=== PATIENT | female | born 1940 | race Caucasian/White ===

== ENCOUNTER 2022-02-23 08:51 | Emergency (ER) | payer MEDICARE, OTHER, SELFPAY ==
[2022-02-23 09:04] VITALS: BP 148/88; PULSE 72; RESP 18; TEMP 36.6; O2SAT 96; BMI 28.3
--- NOTE | 2022-02-23 09:27 | PC.NURSE ---
Dr Parekh with pt
--- NOTE | 2022-02-23 09:49 | ED_ITS ---
HPI - Neuro Symptoms/Deficit General Time Seen by Provider: 09:15 Date Seen: 02/23/22 Chief Complaint: Neuro Symptoms/Altered Deficit Stated Complaint: paralysis in legs when getting up Time Seen by Provider: 02/23/22 09:14 Source: patient Mode of arrival: ambulatory Limitations: no limitations History of Present Illness HPI Narrative: Mrs. Baires is an 81-year-old female previously healthy who presents to the emergency room with weakness. The patient has been seeing Dr. Sigala at the [facility] for this particular issue since the end of October. At that time patient was noting that her hands were falling asleep predominantly her thumb 2nd finger and 3rd finger but would in cage Ali involved both hands all fingers. She is due to see their [facility] in early March but had also submitted paperwork to [place] to be seen. She had doctored in the past primarily at the [facility]. She believes that what she is experiencing is related to her 1st booster shot for COVID. She states that in the past she has had anaphylaxis to injections and they observed her for 2 hours during her 1st shot. She notes no problems at that time but later experience fatigue proximally 4-5 months later. She received her 2nd shot without incident. Her 1st booster was July 24 and she notes 4-5 months later she began experiencing the symptoms. Patient notes that she has been using gabapentin in order to ?calm her nerves. She was told that if her symptoms worsened that she was to come to the emergency room. Today she notes that it was very challenging to get out of bed. She describes just the inability to do so. It does not appear to be compromising 1 side of her body more than the other. She also agrees that she has discomfort. She describes the discomfort and weakness predominantly in her thighs and upper arms. She has not suffered any trauma fall or injury. Have been no visual changes, tick bites, chest pain, night sweats or fevers. No loss of bowel or bladder control and she has no difficulty with swallowing, choking or tripping. She is not currently on a statin. Patient had MRI scheduled this morning to look into weakness. She did cancel that appointment. She also noticed that her hands seem somewhat swollen bilaterally. 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 As well as transient global amnesia 6 years ago seen in follow-up at [facility]. Onset (ago): month(s) History of same: No Quality: weak Exacerbating factors: time (Patient notes that she improves throughout the day. She states that the weakness gets better but throughout the day she will have sudden spasms of difficult comfort mainly in her right hand that cause numbness of her thumb finger) Context: gradual onset On Anticoagulants: No Associated symptoms: denies other symptoms and weakness Treatments Prior to Arrival: none Related Data Home Medications Medication Instructions Recorded Confirmed chlorthalidone 25 mg tablet mg 02/23/22 gabapentin 100 mg capsule mg 02/23/22 hydrochlorothiazide 12.5 mg capsule mg 02/23/22 potassium chloride 10 mEq meq PO 02/23/22 tablet,extended release(part/cryst) Allergies Allergy/AdvReac Type Severity Reaction Status Date / Time No Known Drug Allergies Allergy Verified 02/23/22 09:13 Review of Systems Status of ROS: Reports: 10 or more systems reviewed and unremarkable except as noted in History and below Narrative: Denies fever/chills and night sweats. Const: Reports: fatigue Eyes: Reports: other (No changes in vision.) ENMT: Reports: neck pain (Denies neck pain) and other (Denies difficulty swallowing or frequent choking) Cardio: Reports: other (Denies chest pain) Resp: Reports: other (Patient notes occasional shortness of breath related to allergies.) GI: Reports: other (No vomiting) : Reports: other (No loss of bowel or bladder control) Musculo: Reports: neck pain (Denies neck pain) and muscle weakness Neuro: Reports: numbness in extremities (Occasional numbness in her right thumb, index finger and 3rd finger.) and weakness in extremities (Describes mainly proximal weakness) Endo: Reports: fatigue PFSH PFSH Medical History Cancer Hypertension Social History Smoking Status: Never smoker Second hand tobacco smoke exposure: No Non-prescribed substance use: denies use service: No Exam Const: Vital Signs, click to edit/add: Vital Signs - 24 hr 02/23/22 09:04 02/23/22 11:27 Temperature 97.9 F 97.2 F L Pulse Rate [Right Pulse Oximeter] 72 72 Respiratory Rate 18 18 Blood Pressure [Ri ght Upper Arm] 148/88 H 158/88 H Pulse Oximetry 96 97 Documenting provider has reviewed patient's vital signs: yes Common normals: no apparent distress, oriented x3 (Detailed explanation of symptoms) and alert General appearance: comfortable (But mild distress with movement) Orientation/consciousness: Yes awake, Yes oriented to person, Yes oriented to place and Yes oriented to time HENMT: Common normals: normocephalic, head/scalp atraumatic and external ears normal Head and scalp: normocephalic and atraumatic Face and sinus: normal facial exam and face symmetric General ear: other (Difficulty hearing with mask in place) External ear: external ears normal Eye: Common normals: PERRL, EOMs intact bilaterally, conjunctivae normal and no scleral icterus General eye: normal appearance of both eyes and normal light reflex Visual stokes: other (Peripheral vision intact) Alignment: alignment normal Eyelid: eyelids normal Conjunctiva: conjunctiva(e) normal Sclera: sclerae normal Pupil: PERRL Direct Ophthalmoscopy: normal light reflex Neck & C-Spine: Common normals: full ROM, no lymphadenopathy, supple and no meningeal signs General: normal visual inspection and trachea midline Cervical spine: cervical ROM normal, normal cervical lordosis and other (Negative Spurling's sign) Lymph: Lymphatic: no lymphadenopathy noted Resp: Common normals: normal respiratory effort and clear to auscultation bilaterally Effort & inspection: able to speak in complete sentences Auscultation: clear to auscultation bilaterally Cardio: Common normals: regular rate and regular rhythm Rate: regular rate Rhythm: regular rhythm : Common normals: no CVA tenderness Bladder/kidney exam: no CVA tenderness Back & Pelvis: Common normals: no CVA tenderness and no thoracic nor lumbar tenderness Extremity: Common normals: normal to inspection General: normal exam except as noted Other: Strength of the upper extremities: Abduction present to approximately 80? but significant difficulty holding arms up against resistance. Elbow flexion noted pain in flexing strength 4/5. Elbow extension 3/5 with significant problems against resistance. 2/5 strength wrist extension bilaterally however flexion is intact at 4 to 5/5. Program Associate strength bilaterally decreased to 4/5. Hip flexion bilaterally 3 to 4/5. Knee extension and flexion intact at 5/5. Ankle and great toe flexion and extension 5/5. Neuro: Common normals: oriented x3 (Detailed explanation of symptoms) and moves all extremities Sensorium/orientation: awake, alert, oriented to person, oriented to place and oriented to time Meningeal signs: no meningeal signs Speech: speech normal Sensory exam: sensation present Monofilament exam performed: No Deep tendon reflexes: Rt Biceps (C5, C6): 2+, Lt Biceps (C5, C6): 2+, Rt Brachioradialis (C6): 1+, Lt Brachioradialis (C6): 1+, Rt Patellar (L4): 1+, Lt Patellar (L4): 1+, Rt Ankle (S1): 1+ and Lt Ankle (S1): 1+ Pupil exam: Normal pupillary reactivity/response: bilateral Psych: Common normals: mental status grossly normal, thought process normal, cooperative and speech normal Appearance: grossly normal Activity/motor behavior: appropriate eye contact Speech: normal speech Thought process: normal thought process Thought content: normal thought content Memory/cognition: memory grossly intact Course Course Hospital Course: At this time differential diagnosis is quite broad and does include but is not limited to spinal cord compression, neurological disorder, myositis, rheumatological disorder. We will obtain a CBC, comprehensive panel, sed rate, CRP, urinalysis, B12, iron study, vitamin-D, magnesium. In addition I do think she is in need of the cervical MRI as well as a head CT. Reevaluation(s) Reevaluation #1: Patient noted to be in improved as she has been up and walking. She was able to enjoy a some lunch. She has not had any worsening symptoms. Time: 12:30 Reevaluation #2: With patient we discussed her mildly elevated white count, the results of the head CT which were normal, as well as the MRI of the cervical spine which could explain upper extremity symptoms but had no increased cord signal to explain the proximal weakness of her lower extremities. I also spoke with her in regards to follow up with Neurology at [facility]. She should expect a phone call tomorrow from the neurology department. I have spoken with Radiology who will push her studies down to [facility]. Time: 15:30 Consultations Consultation #1: I had the pleasure of speaking with Dr. Arriola from [facility]. He is in agreement with our radiological studies and also suggest the addition of creatinine kinase. Time: 10:00 Consultation #2: I had the pleasure of speaking to Dr. Arriola a 2nd time at [facility]. With the reassuring CK and cervical MRI he suggests an EMG. He is pushing patient's name to their scheduling desk for an acute neurological appointment. I have provided patient's phone number to them so that they may call sometime tomorrow. Dr. Arriola advises patient to proceed directly to [facility] emergency room should she have continued worsening symptoms. Time: 15:30 Vital Signs Vital signs: Initial Vital Signs Temperature 97.9 F 02/23/22 09:04 Temperature Source Temporal Artery Scan 02/23/22 09:04 Pulse Rate 72 02/23/22 09:04 Pulse Rhythm 02/23/22 09:04 Respiratory Rate 18 02/23/22 09:04 Blood Pressure 148/88 H 02/23/22 09:04 Blood Pressure Mean 108 02/23/22 09:04 Blood Pressure Position Sitting 02/23/22 09:04 Pulse Oximetry 96 02/23/22 09:04 Oxygen Delivery Method 02/23/22 09:04 Vital Signs Temperature 97.9 F 02/23/22 09:04 Pulse Rate 72 02/23/22 09:04 Respiratory Rate 18 02/23/22 09:04 Blood Pressure 148/88 H 02/23/22 09:04 Pulse Oximetry 96 02/23/22 09:04 Temperature 97.2 F L 02/23/22 11:27 Pulse Rate 72 02/23/22 11:27 Respiratory Rate 18 02/23/22 11:27 Blood Pressure 158/88 H 02/23/22 11:27 Pulse Oximetry 97 02/23/22 11:27 MDM - Neuro Symptoms/Deficit MDM Narrative Medical decision making narrative: Discussed with patient vital signs which are normal. Also discussed elevated white count with no focus of infection. We will check a COVID although patient will not have to stay for that we will call her if that comes back positive. At this time feel she is safe to depart home. However, should her symptoms worsen even further she is instructed to go straight to [facility] ER if she is stable. If she is not stable she will come to the [facility] for arrange transfer. COVID is returned as negative. Medical Records Attestation: I reviewed the patient's medical records. Lab Data Attestation: I reviewed the patient's lab results. Lab results narrative: White count slightly elevated. Labs: Lab Results 02/23/22 02/23/22 02/23/22 Range/Units 00:10 00:10 00:10 WBC (4.50-11.00) K/uL RBC (4.00-5.20) m/uL Hgb (12.0-16.0) gm/dL Hct (33.0-51.0) % MCV (80-100) fL MCH (26-34) pg MCHC (32-36) gm/dL RDW Coeff of Dirk (11.5-15.5) % Plt Count (140-440) K/uL Neut % (Auto) (42.0-72.0) % Lymph % (Auto) (20-44) % [place] % (Auto) (0.0-11.0) % Eos % (Auto) (0.0-7.0) % Baso % (Auto) (0.0-3.0) % Neut # (Auto) (1.7-7.0) K/uL Lymph # (Auto) (0.90-2.90) K/uL [place] # (Auto) (0.00-0.90) K/UL Eos # (Auto) (0.00-0.50) K/uL Baso # (Auto) (0.00-0.30) K/uL Abs Immat Gran (auto) (0.00-0.30) K/uL ESR (2-20) mm/hr Sodium 140 (135-149) mmol/L Potassium 4.0 (3.6-5.1) mmol/L Chloride 103 (96-114) mmol/L Carbon Dioxide 30 (20-32) mmol/L BUN 23 (7-30) mg/dL Creatinine 1.1 (0.5-1.5) mg/dL Estimated Creat Clear 36.70 Glucose 114 (60-115) mg/dL Calcium 9.7 (8.4-10.6) mg/dL Magnesium 2.2 (1.5-2.6) mg/dL Iron 79 (37-170) ug/dL TIBC 324 (265-497) ug/dL % Saturation 24 (20-50) % Total Bilirubin 0.4 (0.1-1.5) mg/dL AST 23 (12-35) U/L ALT 16 (4-35) U/L Alkaline Phosphatase 48 (40-150) U/L Total Creatine Kinase 30 L (41-117) U/L C-Reactive Protein 0.7 (0.5-1.0) mg/dL Total Protein 6.7 (6.0-8.3) g/dL Albumin 4.1 (3.3-5.0) g/dL Vitamin B12 836 (243-894) pg/mL 1,25 Dihydroxy Vit D (30-80) ng/mL Urine Color (Yellow) Urine Appearance (Clear) Urine pH (5.0-8.5) Ur Specific [place] (1.000-1.030) Urine Protein (Negative) Urine Glucose (UA) (Negative) Urine Ketones (Negative) Urine Blood (Negative) Urine Nitrite (Negative) Urine Bilirubin (Negative) Urine Urobilinogen (0.2-1.0) Ur Leukocyte Esterase (Negative) Urine RBC (0-2) Urine WBC (0-5) Ur Squamous Epith Cells (None-Few) Urine Bacteria (None) SARS-CoV-2 (PCR) (Negative) Influenza Type A (PCR) (Negative) Influenza Type B (PCR) (Negative) 02/23/22 02/23/22 02/23/22 Range/Units 00:10 10:10 10:10 WBC 12.36 H (4.50-11.00) K/uL RBC 4.59 (4.00-5.20) m/uL Hgb 14.2 (12.0-16.0) gm/dL Hct 43.5 (33.0-51.0) % MCV 95 (80-100) fL MCH 31 (26-34) pg MCHC 33 (32-36) gm/dL RDW Coeff of Dirk 12.0 (11.5-15.5) % Plt Count 359 (140-440) K/uL Neut % (Auto) 71.6 (42.0-72.0) % Lymph % (Auto) 18.9 L (20-44) % [place] % (Auto) 6.6 (0.0-11.0) % Eos % (Auto) 2.1 (0.0-7.0) % Baso % (Auto) 0.5 (0.0-3.0) % Neut # (Auto) 8.80 H (1.7-7.0) K/uL Lymph # (Auto) 2.30 (0.90-2.90) K/uL [place] # (Auto) 0.80 (0.00-0.90) K/UL Eos # (Auto) 0.30 (0.00-0.50) K/uL Baso # (Auto) 0.10 (0.00-0.30) K/uL Abs Immat Gran (auto) 0.04 (0.00-0.30) K/uL ESR 7 (2-20) mm/hr Sodium (135-149) mmol/L Potassium (3.6-5.1) mmol/L Chloride (96-114) mmol/L Carbon Dioxide (20-32) mmol/L BUN (7-30) mg/dL Creatinine (0.5-1.5) mg/dL Estimated Creat Clear Glucose (60-115) mg/dL Calcium (8.4-10.6) mg/dL Magnesium (1.5-2.6) mg/dL Iron (37-170) ug/dL TIBC (265-497) ug/dL % Saturation (20-50) % Total Bilirubin (0.1-1.5) mg/dL AST (12-35) U/L ALT (4-35) U/L Alkaline Phosphatase (40-150) U/L Total Creatine Kinase (41-117) U/L C-Reactive Protein (0.5-1.0) mg/dL Total Protein (6.0-8.3) g/dL Albumin (3.3-5.0) g/dL Vitamin B12 (243-894) pg/mL 1,25 Dihydroxy Vit D 53 (30-80) ng/mL Urine Color (Yellow) Urine Appearance (Clear) Urine pH (5.0-8.5) Ur Specific [place] (1.000-1.030) Urine Protein (Negative) Urine Glucose (UA) (Negative) Urine Ketones (Negative) Urine Blood (Negative) Urine Nitrite (Negative) Urine Bilirubin (Negative) Urine Urobilinogen (0.2-1.0) Ur Leukocyte Esterase (Negative) Urine RBC (0-2) Urine WBC (0-5) Ur Squamous Epith Cells (None-Few) Urine Bacteria (None) SARS-CoV-2 (PCR) (Negative) Influenza Type A (PCR) (Negative) Influenza Type B (PCR) (Negative) 02/23/22 02/23/22 Range/Units 10:45 15:45 WBC (4.50-11.00) K/uL RBC (4.00-5.20) m/uL Hgb (12.0-16.0) gm/dL Hct (33.0-51.0) % MCV (80-100) fL MCH (26-34) pg MCHC (32-36) gm/dL RDW Coeff of Dirk (11.5-15.5) % Plt Count (140-440) K/uL Neut % (Auto) (42.0-72.0) % Lymph % (Auto) (20-44) % [place] % (Auto) (0.0-11.0) % Eos % (Auto) (0.0-7.0) % Baso % (Auto) (0.0-3.0) % Neut # (Auto) (1.7-7.0) K/uL Lymph # (Auto) (0.90-2.90) K/uL [place] # (Auto) (0.00-0.90) K/UL Eos # (Auto) (0.00-0.50) K/uL Baso # (Auto) (0.00-0.30) K/uL Abs Immat Gran (auto) (0.00-0.30) K/uL ESR (2-20) mm/hr Sodium (135-149) mmol/L Potassium (3.6-5.1) mmol/L Chloride (96-114) mmol/L Carbon Dioxide (20-32) mmol/L BUN (7-30) mg/dL Creatinine (0.5-1.5) mg/dL Estimated Creat Clear Glucose (60-115) mg/dL Calcium (8.4-10.6) mg/dL Magnesium (1.5-2.6) mg/dL Iron (37-170) ug/dL TIBC (265-497) ug/dL % Saturation (20-50) % Total Bilirubin (0.1-1.5) mg/dL AST (12-35) U/L ALT (4-35) U/L Alkaline Phosphatase (40-150) U/L Total Creatine Kinase (41-117) U/L C-Reactive Protein (0.5-1.0) mg/dL Total Protein (6.0-8.3) g/dL Albumin (3.3-5.0) g/dL Vitamin B12 (243-894) pg/mL 1,25 Dihydroxy Vit D (30-80) ng/mL Urine Color Yellow (Yellow) Urine Appearance Clear (Clear) Urine pH 7.0 (5.0-8.5) Ur Specific [place] 1.020 (1.000-1.030) Urine Protein Negative (Negative) Urine Glucose (UA) Negative (Negative) Urine Ketones Negative (Negative) Urine Blood Negative (Negative) Urine Nitrite Negative (Negative) Urine Bilirubin Negative (Negative) Urine Urobilinogen 0.2 (0.2-1.0) Ur Leukocyte Esterase 2+ A (Negative) Urine RBC 0-2 (0-2) Urine WBC 2-5 (0-5) Ur Squamous Epith Cells None (None-Few) Urine Bacteria None (None) SARS-CoV-2 (PCR) Negative SARS-CoV-2 (Negative) Influenza Type A (PCR) NEGATIVE (Negative) Influenza Type B (PCR) NEGATIVE (Negative) Discharge Plan Discharge Clinical Impression: Weakness Patient Disposition: Home, Self-Care Condition: Improved Additional Instructions: We will call you if the COVID test comes back positive. Await phone call from [facility] Neurology Department. They should call you tomorrow. Seek medical attention at [facility] emergency room for worsening symptoms. Return to the [facility] as needed. Activity Level: No Restrictions Discharge Diet: Regular Prescriptions: No Action chlorthalidone 25 mg tablet 0RF Label Comments: TAKE 1/2 TABLET (12.5MG) BY MOUTH ONCE DAILY hydrochlorothiazide 12.5 mg capsule 0RF gabapentin 100 mg capsule 0RF potassium chloride 10 mEq tablet,ER particles/crystals PO 0RF Label Comments: TAKE 2 TABLETS BY MOUTH ONCE DAILY WITH A MEAL. Follow Up/Referrals: Carlos Sigala MD [Primary Care Provider] - Stand Alone Forms: [facility] Info Instructions
--- NOTE | 2022-02-23 09:53 | PC.NURSE ---
Dr Parekh speaking with neuro
[2022-02-23 10:31] LABS: Basophils Percent Auto 0.5 % (0.0-3.0); Eosinophils Percent Auto 2.1 % (0.0-7.0); Hematocrit 43.5 % (33.0-51.0); Hemoglobin* 14.2 gm/dL (12.0-16.0); Immature Granulocytes Abs Auto 0.04 K/uL (0.00-0.30); Lymphocytes Percent Auto 18.9 % (20-44); Mean Corpuscular HGB Conc 33 gm/dL (32-36); Mean Corpuscular Hemoglobin 31 pg (26-34); Mean Corpuscular Volume 95 fL (80-100); Monocytes Percent Auto 6.6 % (0.0-11.0); Neutrophils Percent Auto 71.6 % (42.0-72.0); Platelet Count* 359 K/uL (140-440); Red Blood Count 4.59 m/uL (4.00-5.20); White Blood Count* 12.36 K/uL (4.50-11.00)
--- NOTE | 2022-02-23 10:34 | MR_ITS ---
Final Report Patient: HALINA SANTOS Facility:?[facility] Patient ID:?[id number] Site Patient ID:?[id number]. Site :?[id number] Study:?MRI Spine Cervical W/O-02/23/2022 12:06:32 PM Ordering Physician:?CLINT SEVERINO Final Report: Indication: Proximal muscle weakness. Technique: MRI of the cervical spine was performed without the use of intravenous contrast. Comparison: None relevant available. Findings: The cervical vertebral body heights are maintained without fracture. No marrow infiltrative process. Mild multilevel disc height loss and desiccation. No significant spondylolisthesis. No abnormal cord signal. Mild degenerative pannus formation at the C1-2 articulation. C2-3: No spinal canal or neural foraminal narrowing. C3-4: No spinal canal narrowing. [id number] bilateral neural foraminal narrowing secondary to uncovertebral joint and facet hypertrophy. C4-5: Small disc osteophyte complex with minimal spinal canal narrowing. Moderate right and [id number] left neural foraminal narrowing secondary to uncovertebral and facet hypertrophy. C5-6: No spinal canal narrowing. Moderately severe right and moderate left neural foraminal narrowing secondary to uncovertebral and facet hypertrophy. Potential impingement of the right C6 nerve. C6-7: Minimal disc bulge with minimal spinal canal narrowing. Moderately severe bilateral neural foraminal narrowing secondary to uncovertebral joint and facet hypertrophy. Potential impingement of the C7 nerves. C7-T1: No spinal canal or neural foraminal narrowing. Incidental partially empty sella turcica appearance. Impression: 1. At C4-5, moderate right and [id number] left neural foraminal narrowing. 2. At C5-6, moderately severe right and moderate left neural foraminal narrowing. Potential impingement of the right C6 nerve. 3. At C6-7, moderately severe bilateral neural foraminal narrowing with potential impingement of the C7 nerves. 4. No abnormal cord signal. Dictated by Charly Rivas MD @ 02/23/2022 1:39:39 PM (Electronic Signature)
--- NOTE | 2022-02-23 10:34 | CRLHL7_ITS ---
For Patients: As a result of the Century Cures Act, medical imaging exams and procedure reports are released immediately into your electronic medical record. You may view this report before your referring provider. If you have questions, please contact your health care provider. Indication: Arm numbness and weakness Technique: Noncontrast head CT Comparison: Head CT 07/20/2015 Findings: Axial noncontrast images through the brain parenchyma demonstrates generalized parenchymal volume loss with periventricular hypo lucencies likely reflecting chronic small vessel ischemic change. There is no acute intracranial hemorrhage or mass. No midline shift. No acute extra-axial air fluid collections are seen. Skull and scalp are unremarkable. There is partial opacification ethmoid air cells. Impression: No acute intracranial hemorrhage or mass. Ethmoid sinus disease. Please note that all CT scans at this facility use dose modulation, iterative reconstruction, and/or weight-based dosing when appropriate to reduce radiation dose to as low as reasonably achievable. Dictated by Astrid Angelo MD @ 02/23/2022 11:10:40 AM (Electronically Signed)
[2022-02-23 10:38] LABS: Slide Review Reflex No
[2022-02-23 10:48] LABS: Chloride* 103 mmol/L (96-114); Sodium* 140 mmol/L (135-149)
[2022-02-23 10:49] LABS: Albumin* 4.1 g/dL (3.3-5.0); Iron* 79 ug/dL (37-170)
[2022-02-23 10:52] LABS: Alanine Aminotransferase* 16 U/L (4-35); Alkaline Phosphatase* 48 U/L (40-150); Aspartate Amino Transferase* 23 U/L (12-35); Bilirubin Total* 0.4 mg/dL (0.1-1.5); Blood Urea Nitrogen* 23 mg/dL (7-30); Calcium* 9.7 mg/dL (8.4-10.6); Carbon Dioxide* 30 mmol/L (20-32); Creatine Kinase* 30 U/L (41-117); Creatinine* 1.1 mg/dL (0.5-1.5); Glucose* 114 mg/dL (60-115); Magnesium* 2.2 mg/dL (1.5-2.6); Total Protein* 6.7 g/dL (6.0-8.3)
[2022-02-23 10:54] LABS: Appearance Urine Clear (Clear); Bilirubin Urine Negative (Negative); Blood Urine Negative (Negative); Color Urine Yellow (Yellow); Glucose Urine Negative (Negative); Ketones Urine Negative (Negative); Leukocyte Esterase Urine 2+ (Negative); Nitrite Urine Negative (Negative); Protein Urine Negative (Negative); Urobilinogen Urine 0.2 (0.2-1.0)
[2022-02-23 10:55] LABS: C Reactive Protein* 0.7 mg/dL (0.5-1.0)
--- NOTE | 2022-02-23 10:57 | PC.NURSE ---
urine to lab
[2022-02-23 10:59] LABS: Percent Iron Saturation 24 % (20-50); Total Iron Binding Capacity 324 ug/dL (265-497)
[2022-02-23 11:09] LABS: Vitamin D 25 Hydroxy* 53 ng/mL (30-80)
[2022-02-23 11:27] VITALS: BP 158/88; PULSE 72; RESP 18; TEMP 36.2; O2SAT 97
[2022-02-23 11:29] LABS: RBC Urine 0-2 (0-2)
[2022-02-23 11:41] LABS: Vitamin B12* 836 pg/mL (243-894)
[2022-02-23 11:59] LABS: Erythrocyte SedimentationRate* 7 mm/hr (2-20)
--- NOTE | 2022-02-23 14:39 | ED.NURSE ---
Pageanita for [place] consult with Dr. Roberson of [place]. Images pushed to [employer]Auto system.
[2022-02-23 16:45] LABS: PCR FLU A NEGATIVE (Negative); PCR FLU B NEGATIVE (Negative); SARS PCR* Negative SARS-CoV-2 (Negative)
== END 2022-02-23 09:30 | disposition home or self-care (01) ==
PROVIDERS: Emergency Provider Family Medicine; PCP Family Medicine
DX: R53.1 Weakness (principal)
CPT/HCPCS: 36415; 70450; 72141; 80053; 81003; 81015; 82306; 82550; 82607; 83540; 83550; 83735; 85025; 85651; 86140; 87502; 87635; 99285

== ENCOUNTER 2023-04-25 10:34 | Day surgery (SDC) | payer MEDICARE, OTHER, SELFPAY ==
[2023-04-25] MEDS: TETRACAINE 0.5% OPHTH 1 DROP EYE-RIGHT (10:54)
[2023-04-25] MEDS: KETOROLAC OPHTH 0.5% 1 DROP EYE-RIGHT ×3 (10:59→11:24)
[2023-04-25 11:08] VITALS: BMI 13.4
[2023-04-25 11:26] VITALS: BP 139/73; PULSE 69; RESP 16; TEMP 36.9; O2SAT 96
[2023-04-25] MEDS: SODIUM CHLORIDE 0.9 % (FLUSH) 10 ML SYRINGE IVF (11:27)
[2023-04-25] MEDS: TETRACAINE 0.5% OPHTH 2 DROP EYE-RIGHT (11:53)
[2023-04-25] MEDS: TRYPAN BLUE 0.5 ML SYRINGE EYE-RIGHT (11:56)
[2023-04-25] MEDS: BALANCED SALT IRRIG SOLN 15 ML EYE-RIGHT (11:56)
[2023-04-25] MEDS: BRIMONIDINE TARTRATE 0.2% OPHTH 1 DROP EYE-RIGHT (12:13)
[2023-04-25 12:17] VITALS: BP 143/87; PULSE 72; RESP 16; TEMP 36.6; O2SAT 97
--- NOTE | 2023-04-25 12:17 | PM.PROC ---
Procedure Note Date Seen: 04/25/23 Will [facility] bill your pro fee for this procedure?: No Pre-op diagnosis: combined cataract right eye Procedure: kpe with pciol od Procedure Description: NAME OF PROCEDURE Kelman phacoemulsification, right eye, with posterior chamber lens implant. PREOPERATIVE DIAGNOSIS Nuclear sclerotic cortical combined cataract, right eye. POSTOPERATIVE DIAGNOSIS Nuclear sclerotic cortical combined cataract, right eye. INDICATIONS FOR PROCEDURE The patient has noted that his vision in the right eye is failing. Severity Seven/10. Unable to correct with glasses/contact lenses; has disabling night glare when driving, difficulty reading. Because of this, the patient elected to proceed with surgical repair. I have explained the risks, benefits, alternative treatments to the patient including possible loss of the eye under correction, over correction, need for more surgery. The patient understands, accepts, and elects to proceed with surgical repair. PROCEDURE The right eye was dilated with a combination 1% Mydriacyl, 2.5% phenylephrine with topical Ocufen and Vigamox applied to the corneal surface. The patient was brought to the main operating room where under IV sedation, after pausing to identify the correct patient, correct intraoperative lens, power . The right eye was prepped and draped in usual sterile fashion for intraocular surgery. A lid speculum was placed and a paracentesis created at 12 o'clock. The chamber was filled with OVD air,trypan blue dye and entered temporally with a keratome. A continuous tear capsulotomy was performed. The nucleus was hydrodissected and emulsified with local anesthetic and emulsified in a chop technique in the capsular bag. Residual cortex was cleaned. The capsule was clear. At this point, ZCBOO 19.0 diopter posterior chamber lens implant was injected into the capsular bag and was well centered. Residual OVD was cleaned from behind the implant from the capsular bag. The incision hydrated and noted to be leak free. Topical Alphagan, pilocarpine, and Vigamox were applied to the corneal surface and the patient returned to recovery in good condition having tolerated the procedure well. CONDITION ON DISCHARGE Satisfactory.
--- NOTE | 2023-04-25 12:18 | P.ANES_ITS ---
Anesthesia Charges Start Date/Time Anesthesia Start Date: 04/25/23 Anesthesia Start Time: 11:49 Stop Date/Time Anesthesia Stop Date: 04/25/23 Anesthesia Stop Time: 12:18 Summary Extremes of Age - Over 70 or under 1: HOME PARAPROFESSIONAL
== END 2023-04-25 12:35 | disposition home or self-care (01) ==
PROVIDERS: PCP Family Medicine; Visit Provider Ophthalmology
PROC: (CPT 66984; principal; 2023-04-25 12:00)
DX: H25.811 Combined forms of age-related cataract, right eye (principal)
CPT/HCPCS: 66984; 00142; 99100; A9270; J2250; J3010; S0020; V2632

== ENCOUNTER 2023-05-23 09:58 | Day surgery (SDC) | payer MEDICARE, OTHER, SELFPAY ==
[2023-05-23] MEDS: TETRACAINE 0.5% OPHTH 1 DROP EYE-LEFT (10:12)
[2023-05-23 10:20] VITALS: BMI 29.7
[2023-05-23] MEDS: KETOROLAC OPHTH 0.5% 1 DROP EYE-LEFT ×3 (10:20→10:37)
[2023-05-23 10:24] VITALS: BP 138/81; PULSE 71; RESP 20; TEMP 36.5; O2SAT 97
[2023-05-23] MEDS: BRIMONIDINE TARTRATE 0.2% OPHTH 1 DROP EYE-LEFT (10:41)
[2023-05-23] MEDS: SODIUM CHLORIDE 0.9 % (FLUSH) 10 ML SYRINGE IVF (10:54)
--- NOTE | 2023-05-23 11:10 | W.ANESCHARGE ---
Anesthesia Charges Start Date/Time Anesthesia Start Date: 05/23/23 Anesthesia Start Time: 11:18 Stop Date/Time Anesthesia Stop Date: 05/23/23 Anesthesia Stop Time: 11:47 Summary Extremes of Age - Over 70 or under 1: MDA
[2023-05-23] MEDS: TETRACAINE 0.5% OPHTH 2 DROP EYE-LEFT (11:26)
[2023-05-23] MEDS: BALANCED SALT IRRIG SOLN 15 ML EYE-LEFT (11:29)
--- NOTE | 2023-05-23 11:30 | P.ANES_ITS ---
Anesthesia Charges Start Date/Time Anesthesia Start Date: 05/23/23 Anesthesia Start Time: 11:18 Stop Date/Time Anesthesia Stop Date: 05/23/23 Anesthesia Stop Time: 11:47 Summary Extremes of Age - Over 70 or under 1: FREIGHT COORDINATOR
--- NOTE | 2023-05-23 11:46 | PM.PROC ---
Procedure Note Date Seen: 05/23/23 Date of procedure: 05/23/23 Will [facility] bill your pro fee for this procedure?: No Pre-op diagnosis: combined form of cataract left eye Post-op diagnosis: other Procedure Description: NAME OF PROCEDURE Verenice phacoemulsification, Left eye, with posterior chamber lens implant. PREOPERATIVE DIAGNOSIS Nuclear sclerotic cortical combined cataract, left eye. POSTOPERATIVE DIAGNOSIS Nuclear sclerotic cortical combined cataract, left eye. INDICATIONS FOR PROCEDURE The patient has noted that his vision in the left eye is failing. Severity 7/10. Unable to correct with glasses/contact lenses; has disabling night glare when driving, difficulty reading. Because of this, the patient elected to proceed with surgical repair. I have explained the risks, benefits, alternative treatments to the patient including possible loss of the eye under correction, over correction, need for more surgery. The patient understands, accepts, and elects to proceed with surgical repair. PROCEDURE The left eye was dilated with a combination 1% Mydriacyl, 2.5% phenylephrine with topical Ocufen and Vigamox applied to the corneal surface. The patient was brought to the main operating room where under IV sedation, after pausing to identify the correct patient, correct intraoperative lens, power 20.0zcboo left diopters, the left eye was prepped and draped in usual sterile fashion for intraocular surgery. A lid speculum was placed and a paracentesis created at 6 o'clock. The chamber was filled with OVD and entered temporally with a keratome. A continuous tear capsulotomy was performed. The nucleus was hydrodissected and emulsified with local anesthetic and emulsified in a chop technique in the capsular bag. Residual cortex was cleaned. The capsule was clear. At this point, ZCBOO 20.0 diopter posterior chamber lens implant was injected into the capsular bag and was well centered. Residual OVD was cleaned from behind the implant from the capsular bag. The incision hydrated and noted to be leak free. Topical Alphagan, pilocarpine, and Vigamox were applied to the corneal surface and the patient returned to recovery in good condition having tolerated the procedure well. CONDITION ON DISCHARGE Satisfactory.
[2023-05-23 12:24] VITALS: BP 129/71; PULSE 70; RESP 16; TEMP 36.4; O2SAT 98
== END 2023-05-23 12:24 | disposition home or self-care (01) ==
PROVIDERS: PCP Family Medicine; Visit Provider Ophthalmology
PROC: (CPT 66984; principal; 2023-05-23 11:30)
DX: H25.12 Age-related nuclear cataract, left eye (principal)
CPT/HCPCS: 66984; 00142; 99100; A9270; J2250; J3010; S0020; V2632

== ENCOUNTER 2023-10-23 08:18 | Day surgery (SDC) | payer MEDICARE, OTHER, SELFPAY ==
[2023-10-23] VITALS (20 sets, daily range): BP systolic 102–143; BP diastolic 48–104; PULSE 53–85; RESP 12–16; TEMP 36.4–36.7; O2SAT 93–98; BMI 29.3
[2023-10-23] MEDS: SODIUM CHLORIDE 0.9 % (FLUSH) 10 ML SYRINGE IVF (08:30)
[2023-10-23] MEDS: CELECOXIB 200 MG CAPSULE PO (08:40)
[2023-10-23] MEDS: OXYCODONE (CR) 10 MG TAB.ER.12H PO (08:40)
[2023-10-23] MEDS: LACTATED RINGERS 1000 ML 1,000 ML 100 ML IV ×2 (08:40→10:53)
--- NOTE | 2023-10-23 09:12 | SUR.PREOP ---
TIME?OUT:?911 PT/RN/MDA?VERIFICATION?OF?SURGICAL?SITE,?PROCEDURE,?AND?CONSENT OBTAINED?PRIOR?TO?INVASIVE?PROCEDURE.
[2023-10-23] MEDS: fentaNYL 100 MCG/2 ML inj IVP (09:13)
[2023-10-23] MEDS: MIDAZOLAM HCL 1 MG/ML inj IVP (09:13)
--- NOTE | 2023-10-23 09:32 | W.PM.NB ---
Nerve Block Nerve Block Time Seen by Provider: 09:19 Date Seen: 10/23/23 Type of block requested by surgeon for post-operative analgesia: BRANDON/LFCN Side: right Time out performed: Yes Verification of patient name: Yes Verification of date of : Yes Site marking: site marked Name of person performing procedure: Bruno Continuous monitoring Was continuous monitoring of O2 sat, B/P, playground monitor, recorded every 15 minutes?: Yes Procedure Checklist: sterile prep, needles and gloves Ultrasound guided. Images saved: Yes Medications given in 5ml increments after negative aspiration: Ropivicaine %: 0.5 mL: 30 Needle gauge: 20 Decadron (mg): 10 Precedex (mcg): 25 Patient tolerated procedure well: Yes Additional comments: Needle noted below psoas tendon needle noted adjacent to LFCN Block Charges Block Charge (with Pro Fee): Other Periph Nerve Block Use of Ultrasound Machine for Block: Yes- US Guidance/pain block
--- NOTE | 2023-10-23 10:00 | XR_ITS ---
Patient: HALINA SANTOS Facility:?[facility] Patient ID:?[id number] Site Patient ID:?[id number]. Site :?[id number] Study:?XRay-Hip Right 1v-10/23/2023 11:49:36 AM Ordering Physician:BRYAN Final Report: INDICATION: Right total hip. TECHNIQUE: Two spot images of the right hip submitted. 9.03 mGy fluoroscopy dose. FINDINGS: Right hip arthroplasty in place. Dictated by Reagan Sim MD @ 10/24/2023 8:09:11 AM Signed by:?Reagan Sim MD @10/24/2023 8:09:11 AM (Electronic Signature)
[2023-10-23] MEDS: CEFAZOLIN 2 GM INJ IVP (10:15)
[2023-10-23] MEDS: TRANEXAMIC ACID 100 MG/ML INJ 1000 MG IV (10:15)
--- NOTE | 2023-10-23 11:38 | XR_ITS ---
Patient: HALINA SANTOS Facility:?[facility] Patient ID:?[id number] Site Patient ID:?[id number]. Site :?[id number] Study:?XRay-Hip Right post op-10/23/2023 12:53:15 PM Ordering Physician:BRYAN Final Report: INDICATION: Postop BRENDAN. TECHNIQUE: AP pelvis and lateral right hip. FINDINGS: New right BRENDAN. Components appear well seated. Adjacent postop soft tissue air. Dictated by Reagan Sim MD @ 10/23/2023 2:07:40 PM Signed by:?Reagan Sim MD @10/23/2023 2:07:40 PM (Electronic Signature)
--- NOTE | 2023-10-23 11:41 | PM.ORPRC ---
Procedure Note Date of procedure: 10/23/23 Procedure: PREOPERATIVE DIAGNOSIS: Right hip osteoarthritis POSTOPERATIVE DIAGNOSIS: Right hip osteoarthritis NAME OF OPERATION: Right total hip arthroplasty SURGEON: Chele Bustamante MD EVENING SITTER: Sabrina Sosa PA-C, KARUNA Burton IMPLANTS: 1. J[employer]J Mobeetie # 50 sector ingrowth cup 2. 32 x 50 neutral polyethylene 3. Actis # 6 standard collared ingrowth stem 4. 32 +1 cobalt chrome femoral head ANESTHESIA: General ESTIMATED BLOOD LOSS: 300 cc COMPLICATIONS: None SPECIMENS: None DRAINS: None PREOPERATIVE ANTIBIOTICS: Ancef 1 g INDICATIONS: The patient is a 83-year-old with a longstanding history of severe, unrelenting right hip pain secondary to end-stage right hip osteoarthritis. Despite appropriate nonoperative management, including activity modification, use of an assist device, anti-inflammatories, [id number]-[id number] pain medication, physical therapy and injections, they continue to have pain and disability. Operative intervention was offered. The risks, benefits and expected outcomes were discussed in detail. These included but were not limited to: Infection, bleeding, injury to blood vessel or nerve, venous thromboembolism. All questions were answered to their satisfaction. Use of an periodicals library assistant was necessary throughout the case for patient positioning and safety, soft tissue retraction and closure. PROCEDURE: The patient was placed supine on the [place] table. General anesthesia was administered. The periodicals library assistant made sure the patient was properly positioned. The right hip was prepped and draped in the usual sterile fashion. The image intensifier was brought in for a perfect AP pelvis and a perfect double tear drop AP view of each hip which were used for intraoperative templating with our fluoroscopic guide. An oblique incision was made 3 cm distal and 3 cm lateral to the anterior superior iliac spine. The periodicals library assistant retracted the soft tissues to protect them. Subcutaneous dissection was taken with electrocautery to the superficial fascia. The fascia was divided in line with the incision. Blunt dissection was carried medially to the tensor fascia nora and sartorius interval. Deep dissection was carried with electrocautery. The circumflex vessels were cauterized and divided. The capsule was exposed and then divided in a T-fashion, tagged with #1 Ethibond sutures. Retractors were placed in the joint, held by the periodicals library assistant. The anterior wall was resected with the osteotome and pituitary rongeur to expose more of the head/neck. The corkscrew was placed in the femoral head. The neck cut was made in the subcapital region. We made a second neck cut more distal. The napkin ring of bone was removed. The femoral head was removed intact. Acetabular retractors were placed, held by the periodicals library assistant. The labrum was sharply debrided. The capsule was released. The 43 mm reamer was used to the true medial wall. We then enlarged in 2 mm increments using the image intensifier for our reamer placement. We impacted the cup which had excellent purchase. We placed the polyethylene. Attention was then turned to the proximal femur. The limb was placed in 140 degrees of external rotation, maximum extension and adduction. A significant amount of time was spent releasing the capsule to allow us to deliver the femur into the wound and complete the femoral side safely. Retractors were held by the periodicals library assistant throughout the femoral preparation. The box bender and canal finder were used. Broaches were used to a stable size. The calcar reamer was used. Trial components were placed. The hip was reduced and was found to be stable with appropriate soft tissue tension. Length and offset had been nicely restored using the image intensifier and our fluoroscopic guide. Trial components were removed. The stem was impacted. We placed the femoral head. Again, the hip was reduced and was found to be stable with appropriate soft tissue tension. Length and offset had been nicely restored. The periodicals library assistant did a three minute dilute Betadine solution soak. The periodicals library assistant irrigated the wound with 3 liters of normal saline via pulse lavage. The periodicals library assistant repaired the anterior capsule with a #1 Vicryl and our previously placed Ethibond sutures. The periodicals library assistant closed the fascia over the tensor fascia nora with a #1 PDO Stratafix, subcutaneous tissues with 2-0 Vicryl, skin with a running 3-0 Stratafix and glue. A dry dressing was applied by the periodicals library assistant. Sponge and needle counts were correct x 2. The patient tolerated the procedure well; there were no apparent complications. They were awakened and extubated in the operating room, sent to the Post-Anesthesia Care Unit in satisfactory condition. PLAN: 1. The patient will be mobilized with physical therapy, weight-bearing as tolerates 2. Xarelto x 5 days then aspirin x 30 days will be used for DVT prophylaxis 3. The patient will be discharged once medically appropriate
--- NOTE | 2023-10-23 12:18 | W.ANESCHARGE ---
Anesthesia Charges Start Date/Time Anesthesia Start Date: 10/23/23 Anesthesia Start Time: 09:57 Stop Date/Time Anesthesia Stop Date: 10/23/23 Anesthesia Stop Time: 12:28 Summary Extremes of Age - Over 70 or under 1: MDA
--- NOTE | 2023-10-23 12:33 | P.ANES_ITS ---
Anesthesia Charges Start Date/Time Anesthesia Start Date: 10/23/23 Anesthesia Start Time: 09:57 Stop Date/Time Anesthesia Stop Date: 10/23/23 Anesthesia Stop Time: 12:28 Summary Extremes of Age - Over 70 or under 1: RN OUTPATIENT SURGERY
[2023-10-23] MEDS: fentaNYL 100 MCG/2 ML inj 50 MCG IVP ×2 (12:42→12:52)
[2023-10-23] MEDS: CEFAZOLIN 1 GM in 0.9 % SODIUM CHLORIDE Mini-bag 100 ML IVPB (17:48)
--- NOTE | 2023-10-23 18:36 | PM.IMCN1 ---
Date of Consult Patient: Anupama Patient Consult date: 10/23/23 Primary Care Provider: Carlos Sigala MD Consult Narrative Reason for consult: Medical Management of Comorbidities Narrative: Meagan Baires is a 83 year old female who presented to the hospital today for an elective R BRENDAN with Dr. Bustamante. There were no surgical or anesthetic complications noted during procedure. Patient's H&P reviewed, PCP is Dr Sigala. Past medical history significant for: uterine cancer remotely (s/p MAGALY), OA. History of blood clots: No Postoperative plan: Home with . Patient had some difficulty speaking upon arrival to the floor postoperatively. She was examined by Dr. Yusuf of the hospitalist team with reassuring findings. She rested her voice for most of the afternoon and when I see her, she is feeling back to normal and has been tolerating p.o. intake. Review of Systems Status of ROS: Reports: 10 or more systems reviewed and unremarkable except as noted in History and below [facility] Medical History (Updated 10/23/23 @ 18:47 by Sharri Perez MD) Status post replacement of hip joint ?Z96.649 - Presence of unspecified artificial hip joint (ICD-10) Shoulder arthritis ?M19.019 - Primary osteoarthritis, unspecified shoulder (ICD-10) Positive PPD, treated ?R76.11 - Nonspecific reaction to tuberculin skin test without active tuberculosis (ICD-10) Hypertension ?I10 - Essential (primary) hypertension (ICD-10) Cancer ?C80.1 - Malignant (primary) neoplasm, unspecified (ICD-10) Surgical History (Updated 10/23/23 @ 18:47 by Sharri Perez MD) History of cataract extraction with lens replacement (2022) 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) ?Z96.652 - Presence of left artificial knee joint (ICD-10) Trigger finger, left middle finger (09/07/16) ?M65.332 - Trigger finger, left middle finger (ICD-10) Trigger finger, right middle finger (10/31/17) ?M65.331 - Trigger finger, right middle finger (ICD-10) History of total abdominal hysterectomy and bilateral salpingo-oophorectomy ?Z90.710 - Acquired absence of both cervix and uterus (ICD-10) ?Z90.722 - Acquired absence of ovaries, bilateral (ICD-10) ?Z90.79 - Acquired absence of other genital organ(s) (ICD-10) Hx of cholecystectomy ?Z90.49 - Acquired absence of other specified parts of digestive tract (ICD-10) Hx of appendectomy ?Z90.49 - Acquired absence of other specified parts of digestive tract (ICD-10) Social History What is your current living situation?: I presently have a place to live Problems where you live: no known problems In the past 12 months, utilities in danger of being shut off: no In past 12 months, lack of transportation kept you from medical appts, meetings, work, or getting things needed for daily living: no In the past 12 mos, have been you worried that your food would run out before you had money to buy more?: never true In the past 12 mos, the food you bought just didn't last and you didn't have money to buy more?: never true Highest level of school completed/degree received: Master's degree Smoking Status: Never smoker Do you use any of these nicotine containing products: None Second hand tobacco smoke exposure: No How often do you have a drink containing alcohol: never How often do you have six or more drinks on one occasion: Never AUDIT-C Alcohol total score: 0 Non-prescribed substance use: denies use Caffeine: Yes How often does anyone, including family, friends and others, physically hurt you: never How often does anyone, including family, friends and others, insult or talk down to you: never How often does anyone, including family, friends and others, threaten you with harm: never How often does anyone, including family, friends and others, scream or curse at you: never service: No Meds Home Medications and Allergies Home Medications Medication Instructions Recorded Confirmed Type chlorthalidone 25 mg tablet 12.5 mg PO DAILY 02/23/22 10/22/23 History potassium chloride 10 mEq 20 meq PO DAILY 02/23/22 10/22/23 History tablet,extended release(part/cryst) calcium carbonate-vitamin D3 600 1 tab PO DAILY 04/24/23 10/22/23 History mg-125 unit tablet kivcmcsjjkr-tlu-xztingbtj-vitC 1 cap PO DAILY 04/24/23 10/22/23 History capsule (Glucosamine Complex-MSM capsule) multivitamin-ferrous 1 tab PO DAILY 04/24/23 10/22/23 History fumarate-folic acid 18 mg-400 mcg tablet (Centrum Complete) diphenhydramine HCl 25 mg capsule 25 mg PO QHS PRN 05/22/23 10/22/23 History (Allergy (diphenhydramine)) epinephrine 0.3 mg/0.3 mL 0.3 mg IM ONCE 05/22/23 10/22/23 History injection, auto-injector triamcinolone acetonide 0.1 % 1 applic topical BID-TID 05/22/23 10/22/23 History topical cream naproxen 250 mg tablet 220 mg PO BID PRN 10/22/23 10/22/23 History Allergies Allergy/AdvReac Type Severity Reaction Status Date / Time acetaminophen [From Tylenol] Allergy Hallucinati Verified 10/23/23 09:00 ng banana Allergy Verified 10/23/23 09:00 cat dander Allergy Verified 10/23/23 09:00 mold Allergy Verified 10/23/23 09:00 perfume Allergy angioedema Verified 10/23/23 09:00 petrolatum,white Allergy Anaphylaxis Verified 10/23/23 09:00 [From Petroleum Jelly] pollen extracts Allergy stuffy nose Verified 10/23/23 09:00 Sulfa (Sulfonamide Allergy tongue Verified 10/23/23 09:00 Antibiotics) swelling Exam Narrative: Exam Narrative: GEN: Alert and oriented, speaking in full sentences HEENT: Full ROM of neck, EOMIs bilaterally, no scleral icterus CV: RRR, No concerning murmurs R: LCTA bilaterally without concerning wheezing, air movement is adequate Ext: Wearing Manuel hose bilaterally Skin: No concerning skin lesions or rashes on exposed skin Neuro: Nonfocal Psych: Appropriate Const: Vital Signs, click to edit/add: Vital Signs - 24 hr 10/23/23 08:31 10/23/23 09:16 10/23/23 09:20 Temperature 97.5 F L Pulse Rate 81 70 68 Pulse Rate [Left P ulse Oximeter] Respiratory Rate 16 16 16 Blood Pressure 143/66 H 126/104 H 122/69 Blood Pressure [Ri ght Arm] Pulse Oximetry 94 95 94 Oxygen Delivery Me thod Room Air Nasal Cannula Nasal Cannula Oxygen Flow Rate 2 2 10/23/23 09:25 10/23/23 09:30 10/23/23 12:26 Temperature 97.7 F Pulse Rate 66 65 85 Pulse Rate [Left P ulse Oximeter] Respiratory Rate 14 14 16 Blood Pressure 110/63 111/59 L 120/77 Blood Pressure [Ri ght Arm] Pulse Oximetry 94 97 96 Oxygen Delivery Me thod Nasal Cannula Nasal Cannula Room Air Oxygen Flow Rate 2 2 10/23/23 12:31 10/23/23 12:36 10/23/23 12:41 Temperature Pulse Rate 78 68 72 Pulse Rate [Left P ulse Oximeter] Respiratory Rate 12 16 16 Blood Pressure 126/76 109/92 H 110/70 Blood Pressure [Ri ght Arm] Pulse Oximetry 95 97 95 Oxygen Delivery Me thod Room Air Oxygen Flow Rate 10/23/23 12:45 10/23/23 12:50 10/23/23 12:56 Temperature 97.8 F Pulse Rate 70 65 60 Pulse Rate [Left P ulse Oximeter] Respiratory Rate 16 12 14 Blood Pressure 131/66 123/62 111/63 Blood Pressure [Ri ght Arm] Pulse Oximetry 95 93 94 Oxygen Delivery Me thod Room Air Room Air Room Air Oxygen Flow Rate 10/23/23 13:01 10/23/23 13:30 10/23/23 13:30 Temperature 97.9 F 97.9 F Pulse Rate 58 L 60 Pulse Rate [Left P ulse Oximeter] 53 L Respiratory Rate 14 14 12 Blood Pressure 125/59 L Blood Pressure [Ri ght Arm] 130/82 110/79 Pulse Oximetry 94 98 98 Oxygen Delivery Me thod Room Air Room Air Room Air Oxygen Flow Rate 10/23/23 13:45 10/23/23 14:00 10/23/23 14:45 Temperature 97.9 F 97.9 F 98.0 F Pulse Rate Pulse Rate [Left P ulse Oximeter] 58 L 62 62 Respiratory Rate 16 16 16 Blood Pressure Blood Pressure [Ri ght Arm] 128/51 L 114/88 102/68 Pulse Oximetry 98 95 98 Oxygen Delivery Me thod Room Air Room Air Room Air Oxygen Flow Rate Assessment and Plan Assessment and plan (1) Status post replacement of hip joint: Problem comment: - right, Robby, 10/23/23 Status: Acute Plan - pain management and prophylaxis per orthopedic surgery team - continue home medications for comorbidities - anticipate routine postoperative course
[2023-10-23] MEDS: LACTATED RINGERS 1000 ML 1,000 ML 75 ML IV (18:38)
--- NOTE | 2023-10-23 18:56 | PC.NURSE ---
Approx 1430 Meagan complained of losing voice. No vocal vibrations heard when patient was attempting to communicate. Dr. Yusuf notified and at bedside to assess patient/airway. Patient was then able to vocalize moderately. Denies any SOB, trouble moving air. RR 18, oxygen 98% RA. Instructed patient to rest voice. TORO [place], notified of above. RT consulted and assessed patient.
[2023-10-23] MEDS: SENNOSIDES 1 TAB TABLET 2 TAB PO (21:14)
--- NOTE | 2023-10-23 23:57 | PC.NURSE ---
End of Shift: Pt AO, pleasant and cooperative throughout shift. Tolerating pain well, reports some discomfort with movement. Ambulates well with walker, GB, SBA. Saline locked, PO adequate. Tolerated dinner well. Plan to discharge home tomorrow with .
[2023-10-24 01:00] VITALS: BP 114/59; PULSE 77; RESP 16; TEMP 36.7; O2SAT 93
[2023-10-24] MEDS: CEFAZOLIN 1 GM in 0.9 % SODIUM CHLORIDE Mini-bag 100 ML IVPB (01:05)
[2023-10-24 04:00] VITALS: BP 111/90; PULSE 73; RESP 16; TEMP 37.6; O2SAT 96
[2023-10-24] MEDS: OXYCODONE 5 MG TABLET PO ×2 (04:12→08:19)
[2023-10-24 06:29] LABS: Basophils Percent Auto 0.1 % (0.0-3.0); Eosinophils Percent Auto 0.1 % (0.0-7.0); Hematocrit 31.6 % (33.0-51.0); Hemoglobin* 10.6 gm/dL (12.0-16.0); Immature Granulocytes Pct Auto 0.6 %; Lymphocytes Percent Auto 10.7 % (20-44); Mean Corpuscular HGB Conc 34 gm/dL (32-36); Mean Corpuscular Hemoglobin 32 pg (26-34); Mean Corpuscular Volume 95 fL (80-100); Monocytes Percent Auto 8.3 % (0.0-11.0); Neutrophils Percent Auto 80.2 % (42.0-72.0); Platelet Count* 275 K/uL (140-440); RDW Coefficient of Variation % 12.5 % (11.5-15.5); Red Blood Count 3.34 m/uL (4.00-5.20); White Blood Count* 14.15 K/uL (4.50-11.00)
[2023-10-24 06:45] LABS: Slide Review Reflex No
[2023-10-24 07:00] VITALS: BP 115/59; PULSE 80; RESP 16; O2SAT 98
[2023-10-24 07:13] LABS: Sodium* 136 mmol/L (135-149)
[2023-10-24 07:14] LABS: Potassium* 3.2 mmol/L (3.6-5.1)
[2023-10-24 07:16] LABS: Creatinine* 1.1 mg/dL (0.5-1.5); Est. Creatinine Clearance* 32.62; Estimated Glomerular Filt Rate 50 ml/min
[2023-10-24 07:17] LABS: Blood Urea Nitrogen* 26 mg/dL (7-30)
[2023-10-24] MEDS: RIVAROXABAN 10 MG TABLET PO (08:19)
[2023-10-24] MEDS: SENNOSIDES 1 TAB TABLET 2 TAB PO (08:19)
--- NOTE | 2023-10-24 08:30 | P.ORPN_ITS ---
Subjective Subjective Time Seen by Provider: 07:50 Date Seen: 10/24/23 Principal diagnosis: Status post right hip replacement Interval history: Meagan is comfortable this morning. She denies nausea vomiting. Ortho Exam Narrative Exam Narrative: Alert and oriented x3. Patient is in no acute distress. Converses without labored breathing. Hearing is grossly intact. Ambulates with a walker. Examination of the right hip shows minimal soft tissue edema. Dressing is clean, dry, and intact. No erythema or warmth or sign of infection. CMS intact right lower extremity. Bilateral calves are soft and nontender. Const Vital Signs, click to edit/add: Vital Signs - 24 hr 10/23/23 08:31 10/23/23 09:16 10/23/23 09:20 Temperature 97.5 F L Pulse Rate 81 70 68 Pulse Rate [Left Pulse Oximeter] Respiratory Rate 16 16 16 Blood Pressure 143/66 H 126/104 H 122/69 Blood Pressure [Right Arm] Pulse Oximetry 94 95 94 Oxygen Delivery Method Room Air Nasal Cannula Nasal Cannula Oxygen Flow Rate 2 2 10/23/23 09:25 10/23/23 09:30 10/23/23 12:26 Temperature 97.7 F Pulse Rate 66 65 85 Pulse Rate [Left Pulse Oximeter] Respiratory Rate 14 14 16 Blood Pressure 110/63 111/59 L 120/77 Blood Pressure [Right Arm] Pulse Oximetry 94 97 96 Oxygen Delivery Method Nasal Cannula Nasal Cannula Room Air Oxygen Flow Rate 2 2 10/23/23 12:31 10/23/23 12:36 10/23/23 12:41 Temperature Pulse Rate 78 68 72 Pulse Rate [Left Pulse Oximeter] Respiratory Rate 12 16 16 Blood Pressure 126/76 109/92 H 110/70 Blood Pressure [Right Arm] Pulse Oximetry 95 97 95 Oxygen Delivery Method Room Air Oxygen Flow Rate 10/23/23 12:45 10/23/23 12:50 10/23/23 12:56 Temperature 97.8 F Pulse Rate 70 65 60 Pulse Rate [Left Pulse Oximeter] Respiratory Rate 16 12 14 Blood Pressure 131/66 123/62 111/63 Blood Pressure [Right Arm] Pulse Oximetry 95 93 94 Oxygen Delivery Method Room Air Room Air Room Air Oxygen Flow Rate 10/23/23 13:01 10/23/23 13:30 10/23/23 13:30 Temperature 97.9 F 97.9 F Pulse Rate 58 L 60 Pulse Rate [Left Pulse Oximeter] 53 L Respiratory Rate 14 14 12 Blood Pressure 125/59 L Blood Pressure [Right Arm] 130/82 110/79 Pulse Oximetry 94 98 98 Oxygen Delivery Method Room Air Room Air Room Air Oxygen Flow Rate 10/23/23 13:45 10/23/23 14:00 10/23/23 14:45 Temperature 97.9 F 97.9 F 98.0 F Pulse Rate Pulse Rate [Left Pulse Oximeter] 58 L 62 62 Respiratory Rate 16 16 16 Blood Pressure Blood Pressure [Right Arm] 128/51 L 114/88 102/68 Pulse Oximetry 98 95 98 Oxygen Delivery Method Room Air Room Air Room Air Oxygen Flow Rate 10/23/23 15:00 10/23/23 15:52 10/23/23 19:52 Temperature 97.9 F 97.9 F Pulse Rate Pulse Rate [Left Pulse Oximeter] 76 76 74 Respiratory Rate 16 14 14 Blood Pressure Blood Pressure [Right Arm] 108/59 L 103/48 L Pulse Oximetry 98 97 Oxygen Delivery Method Room Air Room Air Oxygen Flow Rate 10/24/23 01:00 10/24/23 01:00 10/24/23 04:00 Temperature 98.1 F 99.6 F Pulse Rate Pulse Rate [Left Pulse Oximeter] 77 77 73 Respiratory Rate 16 16 16 Blood Pressure Blood Pressure [Right Arm] 114/59 L 111/90 H Pulse Oximetry 93 96 Oxygen Delivery Method Room Air Room Air Oxygen Flow Rate 10/24/23 07:00 Temperature Pulse Rate Pulse Rate [Left Pulse Oximeter] 80 Respiratory Rate 16 Blood Pressure Blood Pressure [Right Arm] 115/59 L Pulse Oximetry 98 Oxygen Delivery Method Room Air Oxygen Flow Rate Assessment and Plan Assessment and plan (1) Status post right hip replacement: Problem details: 10/23/2023 Status: Acute Assessment and Plan: Plan for discharge is today to home if they meet discharge criteria. DVT prophylaxis includes Xarelto 10 mg daily for total of 5 days, then aspirin 81 mg twice daily for 30 days, Manuel stockings x1 month may remove for 1 hr per day, frequent ambulation Remove dressing 1 week. Observe wound and phone Orthopedics with any questions or concerns Use Ice on operative hip unrestricted. Return to clinic in 1 week with PA for a wound check Return to clinic in 6 weeks with surgeon Minimize narcotic use. Wean off and discontinue soon as possible. Activities as tolerated. No strenuous activity. Attend outpt PT Patient medications were sent to [place], however patient states that they do not accept her insurance. [facility] is her pharmacy and sending prescriptions to [facility] has not been working lately, therefore I have hand written a prescription for oxycodone for pain. Her nurse will call all other medications to [facility]. Note, dictation performed with voice recognition, and as a result, wrong word or sound like substitutions may have occurred. There may be areas in the script that have gone on detected. Please consider this when interpreting information found in the chart.
--- NOTE | 2023-10-24 12:03 | PC.NURSE ---
The patient discharged home @ 1151 via wheel chair. All discharge instructions were given and reviewed with the patient regarding activity, follow up, and incision site care. As well as signs of infection. The IV was removed and intact. Patient reported mild pain @ 5/10 throughout the morning with adequate relief from oxy.. Tonya LAMA BSN
== END 2023-10-24 11:51 | disposition home or self-care (01) ==
LOC: OR 08:19 → MEDSURG 08:25
PROVIDERS: PCP Family Medicine; Visit Provider Orthopaedic Surgery
PROC: (CPT 27130; principal; 2023-10-23 10:00)
DX: M16.11 Unilateral primary osteoarthritis, right hip (principal); G89.18 Other acute postprocedural pain; I10 Essential (primary) hypertension
CPT/HCPCS: 27130; 01214; 36415; 64450; 73501; 76000; 76942; 82565; 84132; 84295; 84520; 85025; 86850; 86900; 86901; 97110; 97116; 97161; 97165; 97535; 99100; A9270; C1776; J0330; J0690; J1100; J1170; J2250; J2371; J2405; J2704; J2710; J2795; J3010; J7120

== ENCOUNTER 2023-11-27 13:00 | Outpatient (RCR) | payer MEDICARE, OTHER, SELFPAY ==
--- NOTE | 2023-10-16 17:23 | PT.OPEX ---
PT [place] Outpatient Eval PT [facility] Outpatient Eval Start: 10/16/23 17:08 Freq: Status: Active Protocol: Document 10/16/23 17:13 JESSIE (Rec: 10/16/23 17:21 JESSIE [id number]) E-signed By Faiza Bang DPT Physical Therapy Outpatient Evaluation Insurance Information Recert Due Date 01/14/24 Insurance Name Medicare B Medical Diagnosis R hip pain R BRENDAN 10/23/23 Treating Diagnosis R hip pain, impaired R hip ROM , impaired R hip mobility/ strength, impaired transfers, limping/antalgic gait with cane, limited tolerance for extended standing/walking Subjective Subjective Patient reports chronic R hip pain leading up to R BRENDAN scheduled for 10/23/23. She reports R hip pain up to 10/10 with WB, standing and walking . Amb is limited, painful. She has been using a cane since Nov. Some prior PT but without much benefit leading up to surgery. Spouse and son are able to assist at home as needed. Patient has equipment from her prior L TKA about 7 years ago. Date of Last Physician Visit 08/14/23 Date of Surgery (If applicable) 10/23/23 Current Work Status Retired Precautions Treatment Precautions/Contraindications hx L TKA Assessment Assessment/Impression Patient is an 83 year old female with R hip pain, impaired R hip ROM, impaired R hip mobility/strength, impaired transfers, limping/ antalgic gait with cane, limited tolerance for extended standing/walking. She reports severe 10/10 pain with WB, standing, walking. She is using a cane in her R hand for amb - declined switching cane to her L hand for R hip pain. Patient seen in PT today for pre-op session to provide education/information on upcoming BRENDAN surgery, safety information/HO, equipment instruction including use of FWW, and instruction in BRENDAN exercises. Handouts issued for exercises , patient to perform them leading up to surgery. Patient states that she will not be able to perform the exercises due to her severe pain. Able to modify all the exercises for seated position and patient then willing to perform them this session and try to do them at home. Patient states her spouse and son will be able to assist as needed at home. She has 4 stairs with L railing to enter the home. Once inside she can stay on the main level. Bathroom has a tub shower. Patient states they have a shower chair she could use as needed but she does not think she will need it after surgery . Also states they are trying to get a walk in shower installed prior to her surgery next week. Reviewed PT/OT plan during hospital stay and patient is scheduled for OP PT post op. Patient would benefit from skilled PT for pain/sx management, improved hip ROM, improved hip/LE mobility/strength, improved gait, balance/proprioception training, and establishment of HEP. Plan of Care Rehabilitation Potential Good Physical Therapy Goals 1. Patient will be educated in BRENDAN pre/post-op safety, mobility, and exercises with HOs provided within one visit with patient returning to PT for post op treatment after R BRENDAN surgery on 10/23/23. PT goals will be updated to BRENDAN rehab goals when patient returns post op. Coordination/Communication With Referral Source Treatment Plan/Direct Interventions Gait Training,Manual Therapy, Therapeutic Exercises Frequency/Duration one pre-op session, 1x/week post op Patient Will Be Discharged From Therapy Completion of LTG(s),Skills Plateau,Independent w/HEP, Independently Progressing Evaluation Billing Untimed Code Treatment Minutes 36 Complexity Moderate Certification Information Initial Certification Date 10/16/23 Ending Certification Date 01/14/24 Provider Signature Shows Agreement With POC & Medical Necessity Physician Signature & Date Requested Please Sign/Date Here Physician Comment/Change : Physician NPI Number #
== END 2024-03-25 17:03 | disposition home or self-care (01) ==
PROVIDERS: PCP Family Medicine; Visit Provider Orthopaedic Surgery
DX: M16.11 Unilateral primary osteoarthritis, right hip (principal); Z96.641 Presence of right artificial hip joint; M25.551 Pain in right hip; Z74.09 Other reduced mobility; R26.89 Other abnormalities of gait and mobility; R29.898 Other symptoms and signs involving the musculoskeletal system; Z51.89 Encounter for other specified aftercare
CPT/HCPCS: 97110; 97162; 97164